=== PATIENT | female | born 1990 | race Caucasian/White ===

== ENCOUNTER 2024-06-13 13:14 | Outpatient (AMB) | payer OTHER, SELFPAY ==
--- NOTE | 2024-06-13 13:17 | MHC.PC.OV ---
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 Required: No Is last menstrual period known: Yes Last menstrual period: 05/23/24 Post menopausal: No Patient : No Allergies cimetidine [From TAGAMET] Allergy (Unknown, Verified 06/13/24 13:21) NAUSEA & VOMITING Medication List - Last Reconciled 06/13/24 by Marilyn Hawkins PA-C fluoxetine 40 mg PO DAILY Tobacco use date assessed: 06/13/24 Dental Screening Dental Screen Date: 06/13/24 Did you have a dental visit in the last 12 months?: Yes Did you have a dental problem in the last 6 months where you did not have access to dental care?: No Was dental information given to patient?: Patient has dentist HPI RETINAL 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 She is transferring from [place]. She reports a significant past medical history of anxiety, depression, paolo (states this was mostly with ), IFG, episodes of hypoglycemia and lightheadedness. She has been feeling lightheaded for about 5 years but states it could have been going on longer. Does seem to be triggered by sudden movements or if she gets up quickly. She does believe she is well hydrated. She uses an electrolyte packet daily. She feels lightheaded almost every day and can trigger it. No chest pain, shortness on breath or palpitations. She is not believe it is related to blood sugar issues. Endo: States during her she was a borderline diabetic and overnight would often have hypoglycemic events. This was without any medication and she did have to eat at night. She is currently using zepbound for weight loss through an online doctor and compound pharmacy. Does not feel that she has any adverse effects of this. Psych: Currently on fluoxetine 40 mg. No SI/HI. Did not tolerate sertraline. Insect Control Aide: Has a family hx of breast cancer in maternal grandmother, maternal aunt and mother around the late 40s-early 50s with the diagnoses. Patient is BRCA negative. She does follow with gynecology. Works full-time in the [employer]. Has a 1-year-old and 2-year-old at home. Not currently breast-feeding. They have discussed family planning and they are done having more children. [facility] Medical History (Updated 06/13/24 @ 13:59 by Marilyn Hawkins PA-C) Depression Anxiety Eczema Asthma Surgical History (Updated 06/13/24 @ 13:37 by Justina Oglesby) S/P foot surgery, left Family History (Updated 06/13/24 @ 13:36 by Justina Oglesby) Mother Alcohol abuse Breast cancer Brother Alcohol abuse Father Asthma High blood pressure Diabetes Paternal Grandfather Asthma High blood pressure High cholesterol Diabetes Thyroid disorder Paternal Grandmother Asthma Psychiatric disorder Maternal Grandfather High cholesterol Psychiatric disorder Maternal Grandmother Breast cancer Social History Housing: House Patient Tobacco Use Status: Never used Tobacco e-Cigarette/Vaping Use: Never Used Second Hand Smoke Exposure: No Patient : No service: No Current occupational status: employed 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 1. Little interest or pleasure in doing things: not at all 2. Feeling down, depressed, or hopeless: not at all 3. Trouble falling or staying asleep, or sleeping too much: not at all 4. Feeling tired or having little energy: several days 5. Poor appetite or overeating: not at all 6. Feeling bad about yourself - or that you are a failure or have let yourself or your family down: not at all 7. Trouble concentrating on things, such as reading the newspaper or watching television: not at all 8. Moving or speaking so slowly that other people could have noticed. Or the opposite - being so fidgety or restless that you have been moving around a lot more than usual: not at all 9. Thoughts that you would be better off or of hurting yourself in some way: not at all Total score: 1 Depression Screening Interpretation: Negative Depression Screening Done: Yes 09654 - PHQ-9 Billing: Yes Source: Developed by Drs. Wade Garrett, Teresa Watkins, Fady Giraldo and colleagues, with an educational sarina from [employer]. Thrive Questionnaire Date Thrive assessed: 06/13/24 I am a: Patient What is your living situation today?: I have a steady place to live Within the past 12 months, did the food you bought not last and you didn't have the money to get more?: Never true Within the past 12 months, did you worry whether your food would run out before you got money to buy more?: Never true Do you have trouble paying for medicines?: No Do you have trouble getting transportation to medical appointments?: No Do you have trouble paying your heating and electricity bill?: No Do you have trouble taking care of your child, family member or friend?: No Do you have trouble with day-to-day activities such as bathing, preparing meals, shopping, managing finances, etc.?: No Are you currently unemployed and looking for a job?: No Are you interested in more education?: No Please select the resources that you would like help with: None Currently or been in a relationship where the following occur: No concerns reported THRIVE Score: 0 AUDIT C Alcohol Use Questionnaire (AUDIT-C) 1. How often do you have a drink containing alcohol?: 2-4 times a month 2. How many drinks containing alcohol do you have on a typical day when you are drinking?: 1 or 2 3. How often do you have six or more drinks on one occasion?: Never Total Score: 2 Score Reviewed/Action Taken: Yes ELIZABETH-7 AMB Questionnaire ELIZABETH-7 Date ELIZABETH - 7 assessed: 06/13/24 Feeling nervous, anxious, or on edge: 0 = Not at all Not being able to stop or control worryin = Not at all Worrying too much about different things: 0 = Not at all Trouble relaxin = Not at all Being so restless that it is hard to sit still: 0 = Not at all Becoming easily annoyed or irritable: 0 = Not at all Feeling afraid as if something awful might happen: 0 = Not at all Total ELIZABETH-7 score (0-4 normal; 5-9 mild; 10-14 moderate; 15-21 severe): 0 Source: Developed by Teresa Arreaga Roland, Fady Giraldo and colleagues, with an educational sarina from [employer]. ELIZABETH-7 Assessment Billing ELIZABETH-7 Assessment Tool: ELIZABETH-7 Assessment 11859 ACT Questionnaire In the past 4 weeks, how much of the time did your asthma keep you from getting as much done at work, school or at home?: None of the time During the past 4 weeks, how often have you had shortness of breath?: Not at all During the past 4 weeks, how often did your asthma symptoms wake you up at night or earlier than usual in the morning?: Not at all During the past 4 weeks, how often have you had to use your rescue inhaler or nebulizer medication?: Not at all How would you rate your asthma control during the past 4 weeks?: Well controlled Score: 24 Physical exam (Primary Care) Vital Signs: Last Vital Signs Temp 97.9 F 06/13/24 13:25 Pulse 68 06/13/24 13:25 Resp 16 06/13/24 13:25 BP 115/84 06/13/24 13:25 Pulse Ox 96 06/13/24 13:25 Oxygen Delivery Method Room Air 06/13/24 13:25 BMI result Body Mass Index 27.4 Tobacco/Smoking Status: Tobacco use Status Tobacco use date assessed 06/13/24 06/13/24 13:37 Patient Tobacco Use Status Never used Tobacco 06/13/24 13:37 e-Cigarette/Vaping Use Never Used 06/13/24 13:37 PHQ-9: PHQ-9 Score PHQ-9: Total score 1 06/13/24 13:39 Depression Screening Interpretation: Negative Thrive Assessment: Date of Thrive Assessment Date Thrive assessed 06/13/24 06/13/24 13:19 Currently or been in a relationship where the following occur: No concerns reported Const Orientation/consciousness: patient oriented x3 HENMT Ears: hearing grossly normal bilaterally Neck Thyroid: Thyroid normal Lymphatic: no lymphadenopathy noted Resp Auscultation: clear to auscultation bilaterally Cardio Rate: regular rate Rhythm: regular rhythm Heart sounds: S1 normal heart sound present and S2 normal heart sound present GI Inspection: Yes normal to inspection Palpation (GI): Soft to palpation and Other GI palpation findings present (nontender, no cva tenderness) Auscultation: normoactive bowel sounds Rectal Exam - Female: deferred Skin General skin exam: no rashes or lesions noted Neuro General: patient oriented x3, gait normal and no focal motor deficits Office Procedures EKG Details: EKG today in office is normal sinus rhythm at a rate of 61 beats per minute with nonspecific STT wave abnormalities. No prior study to compare. EKG interpreted myself and Dr. Boles. 37030-[id number], Complete Coding Level of Care Code New Pt Level 4 (30302) Complex EM visit Add On G2211 Diagnoses Anxiety with depression F41.8 IFG (impaired fasting glucose) R73.01 Hypoglycemia E16.2 Hx gestational diabetes Z86.32 Lightheadedness R42 Family history of breast cancer Z80.3 CPT Codes EKG - CPT: 50142-[id number], Complete ([id number]) Additional Codes ELIZABETH-7 Assessment Billing - ELIZABETH-7 Assessment Tool: ELIZABETH-7 Assessment 89090 ([id number]) PHQ-9 - 48691 - PHQ-9 Billing: Yes ([id number]) Assessment & Plan Assessment & Plan (1) Anxiety with depression: Code(s): F41.8 - Other specified anxiety disorders Category: Medical Plan: Continue the fluoxetine. Refill provided today. (2) IFG (impaired fasting glucose): Code(s): R73.01 - Impaired fasting glucose Category: Medical Plan: Labs ordered. (3) Hypoglycemia: Code(s): E16.2 - Hypoglycemia, unspecified Category: Medical Plan: As above. We did discuss that she could get a glucometer to monitor her blood sugars. (4) Hx gestational diabetes: Code(s): Z86.32 - Personal history of gestational diabetes Category: Medical Plan: A1c ordered (5) Lightheadedness: Code(s): R42 - Dizziness and giddiness Category: Medical Plan: EKG today is normal sinus rhythm. Orthostatic WNL. Labs ordered. Encouraged hydration. Holter monitor ordered as well. We will follow up pending test results. (6) Family history of breast cancer: Code(s): Z80.3 - Family history of malignant neoplasm of breast Category: Medical Plan: Mammogram ordered. Orders: Orders Complete Blood Count Auto Diff Today E16.2 - Hypoglycemia, unspecified, F41.8 - Other specified anxiety disorders, R42 - Dizziness and giddiness, R73.01 - Impaired fasting glucose, Z86.32 - Personal history of gestational diabetes TSH reflex Free T4 Today E16.2 - Hypoglycemia, unspecified, F41.8 - Other specified anxiety disorders, R42 - Dizziness and giddiness, R73.01 - Impaired fasting glucose, Z86.32 - Personal history of gestational diabetes Magnesium Today E16.2 - Hypoglycemia, unspecified, F41.8 - Other specified anxiety disorders, R42 - Dizziness and giddiness, R73.01 - Impaired fasting glucose, Z86.32 - Personal history of gestational diabetes Vitamin B12 and Folate Today E16.2 - Hypoglycemia, unspecified, F41.8 - Other specified anxiety disorders, R42 - Dizziness and giddiness, R73.01 - Impaired fasting glucose, Z86.32 - Personal history of gestational diabetes Insulin Today E16.2 - Hypoglycemia, unspecified, F41.8 - Other specified anxiety disorders, R42 - Dizziness and giddiness, R73.01 - Impaired fasting glucose, Z86.32 - Personal history of gestational diabetes MM screening mammo BI Today Z12.31 - Encounter for screening mammogram for malignant neoplasm of breast, Z80.3 - Family history of malignant neoplasm of breast Comprehensive [place]. Panel Fast Today E16.2 - Hypoglycemia, unspecified, F41.8 - Other specified anxiety disorders, R42 - Dizziness and giddiness, R73.01 - Impaired fasting glucose, Z86.32 - Personal history of gestational diabetes Ferritin Today E16.2 - Hypoglycemia, unspecified, F41.8 - Other specified anxiety disorders, R42 - Dizziness and giddiness, R73.01 - Impaired fasting glucose, Z86.32 - Personal history of gestational diabetes Lipid Panel Today E16.2 - Hypoglycemia, unspecified, F41.8 - Other specified anxiety disorders, R42 - Dizziness and giddiness, R73.01 - Impaired fasting glucose, Z86.32 - Personal history of gestational diabetes Hemoglobin A1c Today E16.2 - Hypoglycemia, unspecified, F41.8 - Other specified anxiety disorders, R42 - Dizziness and giddiness, R73.01 - Impaired fasting glucose, Z86.32 - Personal history of gestational diabetes Microalbumin, Random (w Creat) Today E16.2 - Hypoglycemia, unspecified, F41.8 - Other specified anxiety disorders, R42 - Dizziness and giddiness, R73.01 - Impaired fasting glucose, Z86.32 - Personal history of gestational diabetes Vitamin B1 Today E16.2 - Hypoglycemia, unspecified, F41.8 - Other specified anxiety disorders, R42 - Dizziness and giddiness, R73.01 - Impaired fasting glucose, Z86.32 - Personal history of gestational diabetes Vitamin A Today E16.2 - Hypoglycemia, unspecified, F41.8 - Other specified anxiety disorders, R42 - Dizziness and giddiness, R73.01 - Impaired fasting glucose, Z86.32 - Personal history of gestational diabetes AMB EKG-In Office Today R42 - Dizziness and giddiness ECG holter monitor 24 hour Today R42 - Dizziness and giddiness Medications: New fluoxetine 40 mg PO DAILY 90 caps 3RF
[2024-06-13 13:25] VITALS: BP 115/84; PULSE 68; RESP 16; TEMP 36.6; O2SAT 96; BMI 27.4
== END 2024-06-13 16:19 | disposition home or self-care (01) ==
PROVIDERS: PCP Physician Assistant; Visit Provider Physician Assistant
DX: R73.01 Impaired fasting glucose (principal); F41.8 Other specified anxiety disorders; Z86.32 Personal history of gestational diabetes; R42 Dizziness and giddiness; Z80.3 Family history of malignant neoplasm of breast

== ENCOUNTER → 2024-06-13 13:14 | Outpatient (BNVA) | payer OTHER, SELFPAY | PROVIDERS: PCP Hospitalist; Visit Provider Physician Assistant | DX: Z00.00 Encounter for general adult medical examination without abnormal findings (principal); F41.8 Other specified anxiety disorders; R73.01 Impaired fasting glucose; E16.2 Hypoglycemia, unspecified; R42 Dizziness and giddiness; J45.909 Unspecified asthma, uncomplicated; Z86.32 Personal history of gestational diabetes; Z79.899 Other long term (current) drug therapy; Z80.3 Family history of malignant neoplasm of breast | CPT/HCPCS: 93005; 96127; 96160 ==

== ENCOUNTER 2024-07-26 12:00 | Outpatient (REF) | payer OTHER, SELFPAY ==
--- NOTE | ~2024-07-26 | MM_ITS ---
EXAMINATION: MM SCREENING DIGITAL BREAST TOMOSYNTHESIS, BILATERAL CLINICAL INFORMATION: Screening. Asymptomatic. Family history of breast cancer including maternal grandmother maternal aunt mother ages in their 40s. COMPARISON: Mammography: Baseline. TECHNIQUE: Digital breast mammography with tomosynthesis is performed in both the craniocaudal and mediolateral oblique views along with computer-aided detection (CAD). FINDINGS: The breasts are heterogeneously dense, which may obscure small masses (ACR BI-RADS breast composition Category c). There are no significant masses, abnormal calcifications, or other abnormalities. MM/MM tomosynthesis screening BI IMPRESSION: No mammographic evidence of malignancy. ASSESSMENT: BI-RADS BI-RADS 1 - Negative RECOMMENDATION: Routine annual mammography screening. Patient has a strong family history of breast cancer with multiple relatives in their 40s. Breast MRI with contrast could be considered for further screening evaluation. Breast MRI would need to be ordered by the patient's providing clinician. 1 year F/U This examination should not preclude the clinical evaluation of a suspicious palpable abnormality. This patient's information was entered into a reminder system with a target due date for their next mammogram. Electronically signed by: Lorna Mueller DO 08/03/2024 11:58 AM EST
--- NOTE | 2024-07-26 13:06 | HM_ITS ---
Conclusion: 1. Patient was monitored for total period of about 24 hours 2. Baseline was normal sinus rhythm with average heart of 73 beats per minute 3. No significant pauses or arrhythmias noted 4. No patient reported events MTDD
--- OUTSIDE RECORDS SUMMARY | 2024-07-26 13:08 | XMS_ITS | Clinical Summary ---
Author Organization [facility] Address [address] [place] [phone] Phone Care Team Providers Care Waterproof Material Folder Name Role Phone Unavailable Primary Care Provider Unavailabl e Immunizations Immunization Administration Dates Next Due DTP 08/13/1993, 0,02/02/1989,12/03,1988 HPV, Quadrivalent 12/06/2007,03/23/2007 Hep B, ped/adol 12/11/1998,03/28/1998,02/17/1998 Hib (PRP-T) 01/26/1990 Influenza, injectable, trivalent 03/23/2007 MMR 03/01/2000,10/28/1989 Meningococcal Conj (Menactra) MCV4P 01/08/2008 OPV 08/13/1993, 0,1988,09/06 Td (adult) (MBL), 2 Lf tetan us toxoid, PF, adsorbed 03/01/2000 Tdap 01/08/2008 Family History Relation Name Status Comments Father Alive Father: Strabis mus/amblyopia, Alive and well Mother Alive Mother: migrane s c menses Sister Alive [id number]: Asthma Social History Tobacco Use Types Packs/Day Years Used Date Smoking Tobacco: Never Assessed Comments Unknown Sex and Gender Information Value Date Recorded Sex Assigned at Not on file Legal Sex Female 4:32 PM EDT Gender Identity Not on file Sexual Orientation Not on file Last Filed Vital Signs Vital Sign Reading Time Taken Comments Blood Pressure - - Pulse - - Temperature 36.7 ??C (98 ??F) 12/01/2009 12:00 AM EDT Respiratory Rate - - Oxygen Saturation - - Inhaled Oxygen Concentration - - Weight 74.4 kg (164 lb) 12/01/2009 12:00 AM EDT Height - - Body Mass Index - - Plan of Treatment Health Maintenance Due Date Last Done Comments Varicella Vaccines (1 of 2 - 13+ 2-dose series) 2001 HPV Vaccines (3 - 3-dose series) 02/28/2008 12/06/2007, 03/23/2007 DTaP,Tdap,and Td Vaccines (7 - Td or Tdap) 01/07/2018 01/08/2008, 03/01/2000, 08/13/1993, Additional history exists Influenza Vaccines (#1) 2024 03/23/2007 COVID-19 Vaccine ( season) 2024 HIB Vaccines Completed 01/26/1990 IPV Vaccines Completed 08/13/1993, 01/05, 1988, Additional history exists Hepatitis B Vaccines Completed 12/11/1998, 03/28/1998, 02/17/1998 MMR Vaccines Completed 03/01/2000, 10/28/1989 Meningococcal Vaccine Aged Out 01/08/2008 No annabella scott eligible based on patient's age to complete this topic Hepatitis A Vaccines Aged Out No long er eligible based on patient's age to complete this topic Men B Vaccine Aged Out No longer elig ible based on patient's age to complete this topic Pneumococcal Vaccine Aged Out No long er eligible based on patient's age to complete this topic
--- OUTSIDE RECORDS SUMMARY | 2024-07-26 13:08 | XMS_ITS | Encounter Summary ---
Author Organization [facility] Address [address] [place] [address] Phone Care Team Providers Care Application Support Manager Name Role Phone Unavailable Primary Care Provider Unavailabl e Encounter Details Date Type Department Care Team (Late st Contact Info) Description 02/12/2010 Documentation EM Family Medicine [address] [place] [address] Family Medicine, Physician [place] [address] Social History Tobacco Use Types Packs/Day Years Used Date Smoking Tobacco: Never Assessed Comments Unknown Sex and Gender Information Value Date Recorded Sex Assigned at Not on file Legal Sex Female 4:32 PM EDT Gender Identity Not on file Sexual Orientation Not on file documented as of this encounter Plan of Treatment Not on file documented as of this encounter Visit Diagnoses Not on filedocumented in this encounter
--- OUTSIDE RECORDS SUMMARY | 2024-07-26 13:08 | XMS_ITS | Encounter Summary ---
Author Organization [facility] Address [address] [place] [address] Phone Care Team Providers Care Inspector Screen Printing Name Role Phone Unavailable Primary Care Provider Unavailabl e Encounter Details Date Type Department Care Team (Late st Contact Info) Description 01/20/2017 Conversion Encounter [facility] - [address] [phone] Social History Tobacco Use Types Packs/Day Years [...]
--- OUTSIDE RECORDS SUMMARY | 2024-07-26 13:08 | XMS_ITS | Encounter Summary ---
Author Organization [facility] Address [address] [place] [address] Phone Care Team Providers Care Rn Clinical Trials Name Role Phone Unavailable Primary Care Provider Unavailabl e Encounter Details Date Type Department Care Team (Late st Contact Info) Description 07/21/2010 Documentation EM Family Medicine [address] [place] [address] Family Medicine, Physician [facility] [place] [address] Social History Tobacco Use Types [...]
--- OUTSIDE RECORDS SUMMARY | 2024-07-26 13:08 | XMS_ITS | Encounter Summary ---
Author Organization [facility] Address [address] [place] [phone] Phone Care Team Providers Care Ethylene Oxide Panelboard Operator Name Role Phone Unavailable Primary Care Provider Unavailabl e Encounter Details Date Type Department Care Team (Late st Contact Info) Description 03/25/2011 Documentation EM Family Medicine [address] [place] [address] Family Medicine, Physician [facility] [place] [address] Social History Tobacco Use Types [...]
== END 2024-07-26 12:01 | disposition home or self-care (01) ==
LOC: HO.MAMMO 12:00
PROVIDERS: PCP Physician Assistant; Visit Provider Physician Assistant
DX: Z12.31 Encounter for screening mammogram for malignant neoplasm of breast (principal); R42 Dizziness and giddiness; Z80.3 Family history of malignant neoplasm of breast
CPT/HCPCS: 77063; 77067; 93225

== ENCOUNTER → 2024-07-26 12:15 | Outpatient (BNV) | payer OTHER, SELFPAY | PROVIDERS: PCP Physician Assistant; Visit Provider Internal Medicine | DX: Z12.31 Encounter for screening mammogram for malignant neoplasm of breast (principal) | CPT/HCPCS: 77063; 77067 ==

== ENCOUNTER → 2024-07-26 13:06 | Outpatient (BNV) | payer OTHER, SELFPAY | PROVIDERS: PCP Physician Assistant; Visit Provider Internal Medicine Cardiovascular Disease | DX: R00.1 Bradycardia, unspecified (principal) | CPT/HCPCS: 93227 ==

== ENCOUNTER 2024-10-25 12:54 | Outpatient (AMB) | payer OTHER, SELFPAY ==
--- OUTSIDE RECORDS SUMMARY | 2024-10-25 12:57 | XMS_ITS | Encounter Summary ---
Author Organization [facility] Address [address] [place] [phone] Phone Care Team Providers Care Director Business Systems Name Role Phone Unavailable Primary Care Provider Unavailabl e Encounter Details Date Type Department Care Team (Late st Contact Info) Description 03/25/2011 Documentation EM Family Medicine [address] [place] [address] Family Medicine, Physician [facility] [place] [address] Social History Tobacco Use Types [...]
--- OUTSIDE RECORDS SUMMARY | 2024-10-25 12:57 | XMS_ITS | Encounter Summary ---
Author Organization [facility] Address [address] [place] [address] Phone Care Team Providers Care Corporate Travel Coordinator Name Role Phone Unavailable Primary Care Provider Unavailabl e Encounter Details Date Type Department Care Team (Late st Contact Info) Description 01/20/2017 Conversion Encounter [facility] - [address] [phone] Social History Tobacco Use Types Packs/Day Years [...]
--- OUTSIDE RECORDS SUMMARY | 2024-10-25 12:58 | XMS_ITS | Encounter Summary ---
Author Organization [facility] Address [address] [place] [address] Phone Care Team Providers Care Magento Developer Name Role Phone Unavailable Primary Care Provider Unavailabl e Encounter Details Date Type Department Care Team (Late st Contact Info) Description 07/21/2010 Documentation EM Family Medicine [address] [place] [address] Family Medicine, Physician [facility] [place] [address] Social History Tobacco Use Types [...]
--- OUTSIDE RECORDS SUMMARY | 2024-10-25 12:58 | XMS_ITS | Clinical Summary ---
Author Organization [facility] Address [address] [place] [address] Phone Care Team Providers Care Second Class Welder Name Role Phone Unavailable Primary Care Provider [...] Mother: migrane s c menses Sister Alive [id number]: Asthma Social History Tobacco Use Types Packs/Day [...]
--- OUTSIDE RECORDS SUMMARY | 2024-10-25 12:58 | XMS_ITS | Encounter Summary ---
Author Organization [facility] Address [address] [place] [address] Phone Care Team Providers Care Speeder Operator Name Role Phone Unavailable Primary Care Provider Unavailabl e Encounter Details Date Type Department Care Team (Late st Contact Info) Description 02/12/2010 Documentation EM Family Medicine [address] [place] [address] Family Medicine, [place] [address] Social History Tobacco Use Types [...]
[2024-10-25 13:08] VITALS: BMI 27.3
--- NOTE | 2024-10-25 13:08 | MHC.OFFVIS ---
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 Started about a week ago getting worse pain and numbness below the knee. 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 Legal Coordinator Required: No Accompanied by: Self / Same As Patient Allergies cimetidine [From TAGAMET] Allergy (Unknown, Verified 10/25/24 13:10) NAUSEA & VOMITING HPI HPI NETWORK AND THREAT SUPPORT SPECIALIST/Self referral pain/weakness in legs: Details: Kendal, a very pleasant 34yo female patient, is presenting today as a self-referral for concerns of right lower extremity numbness, swelling, and pain. She states that the numbness, pain, and swelling is worse after sitting and gets better with activity. She states the numbness starts at her knee and goes to her ankle. Complaints include pain behind the right knee, swelling of lower extremities, cramping, fatigue, and heaviness of the lower extremities. It has been affecting their daily activities including sitting, walking, and standing. It is noted more so in the right leg. There is family hx of her father and paternal uncle having vein procedures of their lower extremities. She denies any hx of blood clots. She is a nonsmoker and is not a diabetic. 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 Patient denies any previous venous surgery or injections. Patient denies any history of DVT/ PE. Patient denies any history of phlebitis. Trial of compression includes - nothing They now present for vascular evaluation regarding their varicose veins. [facility] Medical History Depression Anxiety Eczema Asthma Surgical History S/P foot surgery, left Family History Mother Alcohol abuse Breast cancer Brother Alcohol abuse Father Asthma High blood pressure Diabetes Paternal Grandfather Asthma High blood pressure High cholesterol Diabetes Thyroid disorder Paternal Grandmother Asthma Psychiatric disorder Maternal Grandfather High cholesterol Psychiatric disorder Maternal Grandmother Breast cancer Social History Housing: House Patient Tobacco Use Status: Never used Tobacco e-Cigarette/Vaping Use: Never Used Second Hand Smoke Exposure: No service: No Current occupational status: employed 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 [employer] Current occupational exposures/hazards: No Cognitive needs: No Hearing needs: No Vision needs: Yes Review of Systems Const Reports as per HPI and Denies weakness ENT Reports Normal hearing present and Denies dizziness Card Reports as per HPI, Denies chest pain, Denies chest pain at rest, Denies chest pain with activity, Denies dyspnea and Denies dyspnea on exertion Resp Reports as per HPI, Denies cough, Denies dyspnea and Denies dyspnea on exertion GI Reports as per HPI, Denies abdominal pain, Denies nausea and Denies vomiting Musc Denies numbness Skin/Breast Reports as per HPI, Denies erythema and Denies wounds Neuro Reports Normal hearing present, Denies dizziness, Denies numbness, Denies Sensory deficit (Neuro) and Denies weakness Psych Reports no additional complaints Endo Reports no additional complaints Physical Exam Vital Signs: BMI result Body Mass Index 27.3 Const General: healthy appearing and no acute distress Orientation/consciousness: patient oriented x3 HEENT Head: Yes normal to inspection Ears: hearing grossly normal bilaterally Mouth: Normal oral and palatal mucosa present Resp Effort & Inspection: normal respiratory effort and able to speak in complete sentences Auscultation: clear to auscultation bilaterally Cardio Jugular venous distension: no JVD Rate: regular rate Rhythm: regular rhythm Heart sounds: S1 normal heart sound present and S2 normal heart sound present Bruits: no abdominal aortic bruits, no carotid bruits, no femoral bruits and no renal bruits Peripheral pulses: Peripheral pulses 2+ throughout GI Inspection: Yes normal to inspection Palpation (GI): No Abdominal aortic bruit present Skin General skin exam: no rashes or lesions noted Wounds: no wounds Hair: normal Neuro General: patient oriented x3 Cranial nerves: Yes Normal hearing present Cognition (Neuro): normal cognition Gait exam (Neuro): Normal gait present Motor exam (neuro): 5/5 motor strength present throughout Sensory Exam: No Sensory deficit (Neuro) Extrem Other: Right lower extremity: trace peripheral edema noted. Small telangiectasis noted behind the knee. No tortuosities noted. Palpable DP pulse. CEAP: C - 3 E - primary A - superficial P - reflux General: Yes normal to inspection, Yes full ROM, Yes capillary refill normal and Yes normal gait Assessment & Plan Assessment & Plan (1) Varicose veins of both lower extremities with inflammation: Code(s): I83.11 - Varicose veins of right lower extremity with inflammation; I83.12 - Varicose veins of left lower extremity with inflammation Category: Medical Plan: Kendal is presenting today as a self-referral for concerns of right lower extremity swelling, numbness, and pain, particularly from her knee down to her ankle. She states she first noticed it appx 1m ago but it has worsened over the last week. In short, the patient has evidence of venous insufficiency. I have discussed the pathophysiology with the patient. In addition I have provided informational material regarding venous disease to the patient. We have discussed conservative measures including compression, elevation, and exercise. She has compression socks left over from her pregnancies, she will start wearing them. I have taken the liberty of ordering venous insufficiency testing with the patient. They will follow up with me after testing. The patient had an opportunity to ask questions regarding the treatment plan. All questions were answered. Imaging studies, laboratory studies and physical exam results were discussed and reviewed in detail. No major barriers to understanding were identified. The patient expressed understanding and agreement with the above treatment plan. The patient is aware they should contact our office by phone for worsening of the current condition or the appearance of new symptoms. Thank you for allowing me to participate in the vascular care of this patient. If you have any questions or concerns regarding the treatment for the above condition please do not hesitate to contact me. The office telephone contact is [phone]. This note is constructed using voice recognition software. While every effort has been made to ensure accuracy, android software engineer errors may have been included. Thank you for allowing me to participate in the care of your patient. Yours sincerely, ANGEL Walsh Orders: Orders US venous duplex LE BI 1 Week I83.11 - Varicose veins of right lower extremity with inflammation, I83.12 - Varicose veins of left lower extremity with inflammation Coding Level of Care Code New Pt Level 4 (32608) Diagnoses Varicose veins of both lower extremities with inflammation I83.11; I83.12
== END 2024-10-25 13:27 | disposition home or self-care (01) ==
LOC: HO.HVS 12:55
PROVIDERS: PCP Physician Assistant; Visit Provider Physician Assistant Surgical
DX: I83.11 Varicose veins of right lower extremity with inflammation (principal); I83.12 Varicose veins of left lower extremity with inflammation
CPT/HCPCS: 99204

== ENCOUNTER 2024-10-31 09:36 | Outpatient (REF) | payer OTHER, SELFPAY ==
--- OUTSIDE RECORDS SUMMARY | 2024-10-31 10:18 | XMS_ITS | Encounter Summary ---
Author Organization [facility] Address [address] [place] [id number] Phone Care Team Providers Care Patternmaker Metal Name Role Phone Unavailable Primary Care Provider Unavailabl e Encounter Details Date Type Department Care Team (Late st Contact Info) Description 03/25/2011 Documentation [facility] Family Medicine [address] [place] [address] Family Medicine, Physician [facility] [place] [address] Social History Tobacco Use Types [...]
[2024-10-31 11:24] LABS: MANUAL DIFF FLAG NO
[2024-10-31 11:28] LABS: Basophils Absolute Auto 0.1 X10*3/uL (0.0-0.2); Basophils Percent Auto 0.8 % (0-2); Eosinophils Absolute Auto 0.2 X10*3/uL (0.0-0.4); Eosinophils Percent Auto 2.8 % (0-4); Hematocrit 38.6 % (37.0-47.0); Hemoglobin 12.6 g/dl (12.0-16.0); Imm Gran Abs Auto 0.01 X10*3/uL (0.00-0.03); Imm Gran Pct Auto 0.2 % (0.0-0.4); Lymphocytes Absolute Auto 1.5 X10*3/uL (1.2-4.9); Lymphocytes Percent Auto 24.1 % (20-40); Mean Corpuscular HGB Conc 32.6 g/dl (31.0-35.0); Mean Corpuscular Hemoglobin 28.6 pg (27.0-33.0); Mean Corpuscular Volume 87.7 fL (80.0-98.0); Monocytes Absolute Auto 0.4 X10*3/uL (0.1-1.2); Monocytes Percent Auto 6.1 % (2-11); Neutrophils Absolute Auto 4.1 x10*3/uL (2.0-8.3); Platelet Count 247 X10*3/uL (160-400); Red Cell Distribution Width 13.1 % (11.0-16.0); White Blood Count 6.2 X10*3/uL (4.8-10.8)
[2024-10-31 11:39] LABS: Estimated Average Glucose 94 mg/dL; Hemoglobin A1C 99.3081 umol/L; Hemoglobin A1c % 4.9 % (<6.0); Total Hemoglobin (HGBA1C) 3323.2565 umol/L
[2024-10-31 12:01] LABS: Alanine Aminotransferase 19 U/L (0-31); Albumin Level 4.3 g/dL (3.5-5.0); Alkaline Phosphatase 70 U/L (39-117); Anion Gap 9 (12-20); Aspartate Amino Transferase 17 U/L (5-31); Bilirubin Total 0.3 mg/dL (0.0-1.0); Blood Urea Nitrogen 18 mg/dL (9-16); Calcium 8.8 mg/dL (8.4-10.2); Carbon Dioxide 27 mmol/L (22-29); Chloride 108 mmol/L (96-108); Cholesterol 181 mg/dL (<200); Estimated Glomerular Filt Rate > 60; Glucose Fasting 83 mg/dL (60-99); HDL Cholesterol 65 mg/dL (>40); LDL Cholesterol Calculated 106 mg/dL (<100); Magnesium 1.8 mg/dL (1.6-2.6); Potassium 4.5 mmol/L (3.3-5.1); Sodium 139 mmol/L (135-145); Total Protein 7.1 g/dL (6.5-8.0); Triglycerides 50 mg/dL (<150)
[2024-10-31 12:11] LABS: Ferritin 31 ng/mL (10-122); TSH reflex Free T4 1.37 uIU/mL (0.32-4.0)
[2024-10-31 12:32] LABS: Folate 9.2 ng/mL (> or = 4.0); Vitamin B12 677 pg/mL (200-900)
[2024-10-31 18:05] LABS: Insulin 6 uU/mL (2-29)
[2024-11-04 13:58] LABS: Vitamin B1 19 nmol/L (8-30)
[2024-11-04 20:27] LABS: Vitamin A 41 mcg/dL (38-98)
== END 2024-10-31 09:37 | disposition home or self-care (01) ==
LOC: HO.WFDLDS 09:36
PROVIDERS: Visit Provider Physician Assistant
DX: F41.8 Other specified anxiety disorders (principal); E16.2 Hypoglycemia, unspecified; Z86.32 Personal history of gestational diabetes; R42 Dizziness and giddiness; Z13.6 Encounter for screening for cardiovascular disorders
CPT/HCPCS: 36415; 80053; 80061; 82607; 82728; 82746; 83036; 83525; 83735; 84425; 84443; 84590; 85025

== ENCOUNTER 2024-11-13 08:30 | Outpatient (REF) | payer OTHER, SELFPAY ==
--- NOTE | ~2024-11-13 | US_ITS ---
EXAMINATION: US LOWER EXTREMITY VENOUS (REFLUX EXAM), BILATERAL CLINICAL INFORMATION: Varicose veins of the lower extremity with inflammation COMPARISON: None. TECHNIQUE: Color flow triplex imaging and compression Doppler was performed to evaluate both the deep and the superficial systems bilaterally. To evaluate the superficial system, the examination was performed in the upright position. Color-flow Doppler ultrasound and compression ultrasound were utilized. In addition, maneuvers were utilized to demonstrate reflux. FINDINGS: 1. DEEP VENOUS ULTRASOUND OF THE RIGHT LOWER EXTREMITY: Common Femoral Vein: Compressible, normal respiratory variation and augmented flow. Femoral Vein: Compressible, normal color flow and augmentation. Popliteal Vein: Compressible. Reflux measured 784 ms Deep Reflux: There is no evidence of reflux in the deep system in either the common femoral vein, superficial femoral or the popliteal vein. There is no evidence of a [facility]'s cyst. 2. SUPERFICIAL ULTRASOUND WITH DOPPLER OF RIGHT LOWER EXTREMITY: GREAT SAPHENOUS VEIN: Saphenofemoral Junction: 0.7 cm; Reflux: 0 ms Proximal Thigh: 0.4 cm; Reflux: 0 ms Mid Thigh: 0.4 cm; Reflux: > 2384 ms Distal Thigh: 0.5 cm; Reflux: 820 ms At Knee: 0.6 cm; Reflux: 0 ms Proximal Calf: 0.3 cm; Reflux: 0 ms Mid Calf: 0.2 cm; Reflux: 0 ms Distal Calf: 0.3 cm; Reflux: 0 ms Lateral accessory GREAT SAPHENOUS VEIN: Mid Thigh: 0.1 cm; Reflux: 0 ms DUPLICATED MEDIAL GREAT SAPHENOUS VEIN: Diameter: None imaged Reflux: NA DUPLICATED LATERAL GREAT SAPHENOUS VEIN: Diameter: None imaged Reflux: NA SMALL SAPHENOUS VEIN: Popliteal vein drainage Saphenopopliteal Junction: 0.3 cm; Reflux: 0 ms Mid calf: 0.3 cm; Reflux: 0 ms Distal: 0.3 cm; Reflux: 0 ms VEIN OF GIACOMINI: Size: 0.3 cm Reflux: 0 ms PERFORATORS: Location: Greater saphenous vein, mid thigh Size: 0.2 cm Reflux: 0 ms PERFORATORS: Location: Greater saphenous vein, proximal calf Size: 0.2 cm Reflux: 0 ms Location: Greater saphenous vein, distal calf Size: 0.1 cm Reflux: 0 ms VARICOSITIES >3mm: Location: Greater saphenous vein, proximal calf Size: 0.3 cm Reflux: 0 ms 3. DEEP VENOUS ULTRASOUND OF THE LEFT LOWER EXTREMITY: Common Femoral Vein: Compressible, normal respiratory variation and augmented flow. Femoral Vein: Compressible, normal color flow and augmentation. Popliteal Vein: Compressible, normal augmentation. Deep Reflux: There is no evidence of reflux in the deep system in either the common femoral vein, superficial femoral or the popliteal vein. 4. SUPERFICIAL ULTRASOUND WITH DOPPLER OF LEFT LOWER EXTREMITY: GREAT SAPHENOUS VEIN: Saphenofemoral Junction: 0.7 cm; Reflux: 0 ms Proximal Thigh: 0.5 cm; Reflux: 0 ms Mid Thigh: 0.5 cm; Reflux: 0 ms Distal Thigh: 0.6 cm; Reflux: 0 ms At Knee: 0.4 cm; Reflux: 0 ms Proximal Calf: 0.2 cm; Reflux: 0 ms Mid Calf: 0.3 cm; Reflux: 0 ms Distal Calf: 0.3 cm; Reflux: 0 ms Lateral accessory GREAT SAPHENOUS VEIN: Saphenofemoral Junction: 0.3 cm; Reflux: 0 ms Mid Thigh: 0.3 cm; Reflux: 0 ms Medial accessory GREAT SAPHENOUS VEIN: None imaged DUPLICATED MEDIAL GREAT SAPHENOUS VEIN: Diameter: None imaged cm Reflux: NA ms DUPLICATED LATERAL GREAT SAPHENOUS VEIN: Diameter: None imaged. cm Reflux: NA ms SMALL SAPHENOUS VEIN: Popliteal vein drainage Saphenopopliteal Junction: 0.4 cm; Reflux: 0 ms Proximal: 0.2 cm; Reflux: 0 ms Distal: 0.2 cm; Reflux: 0 ms VEIN OF GIACOMINI: Size: 0.4 Reflux: 0 PERFORATORS: Location: Greater saphenous vein, knee Size: 0.1 cm Reflux: 0 ms Location: Greater saphenous vein, mid calf Size: 0.1 cm Reflux: 0 ms VARICOSITIES >3mm: Location: Greater saphenous vein, midcalf Size: 0.4 cm Reflux: 0 ms Location: Greater saphenous vein, knee Size: 0.5 cm Reflux: 0 ms US/US venous duplex LE BI IMPRESSION: Right: There is evidence of venous incompetence with perforators and varicose veins. Left: No venous reflux is demonstrated. Varicosities and perforators as described above. Electronically signed by: Gary Lopez MD 11/13/2024 11:36 AM EDT
--- OUTSIDE RECORDS SUMMARY | 2024-11-13 08:45 | XMS_ITS | Patient Health Record ---
Author Organization [facility] Address [address] [facility] [place] [address] Care Team Providers Care Plasterer Apprentice Name Role Phone Caryn Winston Primary Care Provider Naa Tellez Unavailable [phone] Allergies Allergen (clinical drug ingredient) Drug/Non Drug Allergy documented on EMR Reaction Allergy Type Onset Date Status cimetidine Tagamet HB Unknown Drug Allergy Activ e Reason For Referral No Information Medications Medication SIG (Take, Route, Fr equency, Duration) Notes Start Date End Date Status FLUoxetine HCl 20 MG Orally Once a day Active Bone Stimulator as directed 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 . . 2-3x/week for 3-4 weeks 07/2018 Active Claritin 10 MG 1 capsule Orally Active Sprintec 28 Active ProAir HFA Active Social History Tobacco Use: Social History Observation Description Date Details (start date - stop date) Never Smoker NA - NA Tobacco Use/Smoking Question Answer Notes Are you a: nonsmoker Additional Findings: Tobacco Non-User Aggressive non-smoker Alcohol Screen Question Answer Notes Did you have a drink contain ing alcohol in the past year? Yes How often did you have a dri nk containing alcohol in the past year? 2 to 4 times a month (2 points) How many drinks did you have on a typical day when you were drinking in the past year? 1 or 2 drinks (0 point) How often did you have 6 or more drinks on one occasion in the past year? Never (0 point) Points 2 Interpretation Negative Tobacco use other than smoking: Question Answer Notes Are you an other tobacco user? No Plan Of Treatment Pending Test Test Name Order Date MRI : Foot, left 12/20/2018 X ray : Foot, left 3V 01/31/2019 X ray : Foot, left 3V 03/08/2019 X ray : Foot, left 3V 11/27/2018 X ray : Foot, left 3V 12/20/2018 Insurance Providers Payer Name Payer Address Payer Phone Subscriber Number Group Number Insured Name Patient Relationship to Insured Coverage Start Date Coverage End Date [facility] [address] [place] [address] [id number] [address], Kendal Self - patient is the insured Medical (General) History Medical History History ICD Code Anxiety Back,Hip,and Knee pain Depression Chicken pox Surgical History Surgery Date(Month/Year) ovarian cyst 09/2016 wisdom teeth extraction 2006
== END 2024-11-13 08:31 | disposition home or self-care (01) ==
LOC: HO.US 08:30
PROVIDERS: PCP Physician Assistant; Visit Provider Physician Assistant Surgical
DX: I83.11 Varicose veins of right lower extremity with inflammation (principal); I83.12 Varicose veins of left lower extremity with inflammation
CPT/HCPCS: 93970

== ENCOUNTER → 2024-11-13 08:33 | Outpatient (BNV) | payer OTHER, SELFPAY | PROVIDERS: PCP Physician Assistant; Visit Provider Radiology Diagnostic Radiology | DX: I83.11 Varicose veins of right lower extremity with inflammation (principal); I83.12 Varicose veins of left lower extremity with inflammation | CPT/HCPCS: 93970 ==

== ENCOUNTER 2024-11-27 14:49 | Outpatient (AMB) | payer OTHER, SELFPAY ==
--- NOTE | 2024-11-27 14:51 | MHC.OFFVIS ---
Vital Signs 11/27/24 14:52 Height 5 ft 4 in Weight 159 lb BMI 27.3 Intake Visit Reasons: Follow Up 11/13 US Intake Note: follow up US 11/13/24, pt states pain and numbness that starts behind the knee. 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 Accompanied by: Self / Same As Patient Allergies cimetidine (From Monitor110) Allergy (Unknown, Verified 11/27/24 14:55) NAUSEA & VOMITING HPI HPI Follow Up 11/13 US: Details: The patient is a 34-year-old female presenting with venous insufficiency and associated symptoms. She reports numbness and pain in her right leg, particularly from the knee down, which occurs even after sitting for a short period. The numbness is accompanied by a sensation of circulation being cut off, leading to limping upon standing. The patient has a history of chronic back pain dating back to high school, approximately 20 years ago. She notes that the back pain worsened after her second , following a misdiagnosed foot fracture that led to prolonged immobilization and subsequent hip imbalance. Physical therapy was attempted post-immobilization, but the pain has persisted. The patient denies smoking and diabetes, and she reports being relatively active despite her symptoms. She experiences swelling in her right leg, which does not require significant provocation. Of note she has used compression with minimal relief PFSH Medical History Depression Anxiety Eczema Asthma Surgical History S/P foot surgery, left Family History Mother Alcohol abuse Breast cancer Brother Alcohol abuse Father Asthma High blood pressure Diabetes Paternal Grandfather Asthma High blood pressure High cholesterol Diabetes Thyroid disorder Paternal Grandmother Asthma Psychiatric disorder Maternal Grandfather High cholesterol Psychiatric disorder Maternal Grandmother Breast cancer Social History Housing: House Patient Tobacco Use Status: Never used Tobacco e-Cigarette/Vaping Use: Never Used Second Hand Smoke Exposure: No service: No Current occupational status: employed 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 [employer] Current occupational exposures/hazards: No Cognitive needs: No Hearing needs: No Vision needs: Yes Review of Systems Const Reports as per HPI ENT Reports no additional complaints Card Denies chest pain, Denies chest pain at rest and Denies chest pain with activity Resp Denies chest congestion and Denies cough GI Reports no additional complaints Musc Details: pain over varicosities, aching of lower extremities, swelling, cramping, heaviness and tiredness, itching Denies abnormal gait Skin/Breast Reports pruritus and Denies wounds Neuro Reports no additional complaints and Denies abnormal gait Psych Denies no additional complaints Physical Exam Vital Signs: BMI result Body Mass Index 27.3 Const General: cooperative, healthy appearing and comfortable Orientation/consciousness: oriented to person, oriented to place and oriented to time Neck Carotids: no bruits Chest Chest palpation & inspection: normal inspection of the chest and normal palpation of entire chest wall Resp Effort & Inspection: normal respiratory effort and able to speak in complete sentences Cardio Rate: regular rate Heart sounds: S1 normal heart sound present and S2 normal heart sound present Peripheral pulses: Peripheral pulses 2+ throughout GI Inspection: Yes normal to inspection Skin Other: +2 edema, large rope-like varicosities greater than 4 mm CEAP Classification C4 - skin color changes Ep - Etiology Primary As - superficial veins P - reflux General skin exam: dry skin Neuro General: oriented to person, oriented to place and oriented to time Extrem Right lower extremity: full ROM, normal capillary refill and edema Left lower extremity: full ROM, normal capillary refill and edema Psych Mental Status: mental status grossly normal Results Reviewed Results Reviewed: Brief summary of venous insufficiency testing is as follows: right great saphenous vein: Positive right small saphenous vein: negative right accessory vein: none present left great saphenous vein: negative left small saphenous vein: negative left accessory vein: none present Please note there is no evidence of any venous aneurysms or significant tortuosity Assessment & Plan Assessment & Plan (1) Varicose veins of right lower extremity with inflammation: Code(s): I83.11 - Varicose veins of right lower extremity with inflammation Category: Medical Plan: This patient has varicose veins with inflammation. They continue to be a source of discomfort for the patient. The patient has tried conservative treatment with compression, leg elevation and exercise program for over 3 months time. They have been compliant with all treatment. This has provided minimal relief for the patient. I do not anticipate this course of treatment will alter the underlying etiology. The patient has been scheduled for lower extremity venous treatment inclusive of --- right great saphenous vein Cyanoacralate ablation. Risks, benefits, and complications of this procedure has been discussed in detail with the patient including but not limited to bleeding, infection, and the development of a DVT. The patient has demonstrated a clear understanding and has consented. We will schedule the patient as soon as possible. Thank you for allowing us to participate in this patient's care. If there are any questions or concerns please do not hesitate to contact us. Coding Level of Care Code Est Pt Level 4 (59847) Diagnoses Varicose veins of right lower extremity with inflammation I83.11
[2024-11-27 14:52] VITALS: BMI 27.3
--- OUTSIDE RECORDS SUMMARY | 2024-11-27 18:02 | XMS_ITS | Patient Health Record ---
Author Organization [facility] Address [address] [facility] [address] Care Team Providers Care Fire Crew Worker Name Role Phone Caryn Winston Primary Care Provider Naa Tellez Unavailable [phone] Allergies Allergen (clinical drug ingredient) Drug/Non Drug [...] Insured Coverage Start Date Coverage End Date [facility] [address] [place] [address] [id number] [address], Kendal Self - patient is the insured Medical (General) History Medical History History ICD Code Anxiety Back,Hip,and Knee pain Depression Chicken pox Surgical History Surgery Date(Month/Year) ovarian cyst 09/2016 wisdom teeth extraction 2006
== END 2024-11-27 15:15 | disposition home or self-care (01) ==
LOC: HO.HVS 14:50
PROVIDERS: PCP Physician Assistant; Visit Provider Surgery Vascular Surgery
DX: I83.11 Varicose veins of right lower extremity with inflammation (principal)
CPT/HCPCS: 99214

== ENCOUNTER 2024-12-21 09:18 | Outpatient (AMB) | payer OTHER, SELFPAY ==
--- OUTSIDE RECORDS SUMMARY | 2024-12-21 09:24 | XMS_ITS | Encounter Summary ---
Author Organization [facility] Address [address] [place] [phone] Phone Care Team Providers Care Air Quality Consultant Name Role Phone Unavailable Primary Care Provider Unavailabl e Encounter Details Date Type Department Care Team (Late st Contact Info) Description 03/25/2011 Documentation [facility] [address] [place] [address] Family Medicine, Physician [facility] [place] [address] Social History Tobacco Use Types [...]
--- OUTSIDE RECORDS SUMMARY | 2024-12-21 09:24 | XMS_ITS | Patient Health Record ---
Author Organization [facility] Address [address] [facility] [place] [address] Care Team Providers Care Botanical Technical Officer Name Role Phone Caryn Winston Primary Care Provider Naa Tellez Unavailable [phone] Allergies Allergen (clinical drug ingredient) Drug/Non Drug [...] Act louann Physical Therapy . . . 2-3x/week; Durat ion: 3-4 weeks 01/05/2019 Active Claritin 10 MG 1 capsule Orally [...] Insured Coverage Start Date Coverage End Date [facility] [address] [place] [address] [id number] [address], Kendal Self - patient is the insured Medical (General) History Medical History History ICD Code Anxiety Back,Hip,and Knee pain Depression Chicken pox Surgical History Surgery Date(Month/Year) ovarian cyst 09/2016 wisdom teeth extraction 2006
[2024-12-21 10:04] VITALS: BMI 27.3
--- NOTE | 2024-12-21 10:04 | MHC.OFFVIS ---
Vital Signs 12/21/24 10:04 Height 5 ft 4 in Weight 159 lb BMI 27.3 Intake Visit Reasons: Right GSV Venaseal [place] Reverse Winder Required: No Accompanied by: Self / Same As Patient Allergies cimetidine (From Girl Meets DressT) Allergy (Unknown, Verified 12/21/24 10:04) NAUSEA & VOMITING PFSH Medical History Depression Anxiety Eczema Asthma Surgical History S/P foot surgery, left Family History Mother Alcohol abuse Breast cancer Brother Alcohol abuse Father Asthma High blood pressure Diabetes Paternal Grandfather Asthma High blood pressure High cholesterol Diabetes Thyroid disorder Paternal Grandmother Asthma Psychiatric disorder Maternal Grandfather High cholesterol Psychiatric disorder Maternal Grandmother Breast cancer Social History Housing: House Patient Tobacco Use Status: Never used Tobacco e-Cigarette/Vaping Use: Never Used Second Hand Smoke Exposure: No service: No Current occupational status: employed 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 [employer] Current occupational exposures/hazards: No Cognitive needs: No Hearing needs: No Vision needs: Yes Physical Exam Vital Signs: BMI result Body Mass Index 27.3 Office Procedures Vascular Office Procedure Details Details: Diagnosis: Right Leg varicose veins with inflammation Procedure: Endovenous Ablation of the right Great Saphenous Vein with VenaSeal Closure System Anesthesia: Local infiltration 5 cc, Bin Tripper Operator: None Estimated Blood Loss: min Specimen: none Duplex ultrasound was used to map out the insufficient saphenous vein, and access was determined and marked on the overlying skin. The depth and diameter of the vein(s) to be treated was documented. The patient was placed supine on the procedure table and the leg was prepped and draped using sterile technique. Ultasound guidance was again used to localize the access site. 1% lidocaine was injected as a local anesthetic in the subcutaneous tissues at the target location in the GSV in the lower leg. Using ultrasound guidance, access was gained at this location with the 19 gauge thin walled access needle and followed by introduction of a short guidewire, location confirmed with ultrasound. A small, 3 mm incision was made at the access site to allow for introduction and placement of the 7 Fr x7cm introducer/dilator. The dilator and guidewire were removed. The 0.035 guidewire from the VenaSeal kit was then introduced and positioned at the saphenofemoral junction using ultrasound guidance. The 80 cm 7 Fr introducer sheath/dilator was positioned 5cm from the saphenofemoral junction. The guidewire and dilator were removed, and the remaining sheath was flushed with sterile saline, with the syringe remaining in place prior to the next steps. The cyanoacrylate adhesive was precisely primed into the 5 F delivery catheter and this catheter/syringe combination was attached within the dispenser gun. This assembly was introduced through the 7F sheath and positioned 5 cm caudal of the saphenofemoral junction under ultrasound guidance. The steps from the IFU were followed for dispensing amounts, locations and compression times, 2 aliquots proximally with 3 minutes of compression, and 1 aliquot every 3 cm distally with 30 sec of compression along the course of the vessel. Following the last injection and compression sequence, the catheter and introducer sheath were pulled out from the access site. Hemostasis was achieved with manual compression and an adhesive bandage was applied to the incision. Ultrasound confirmed complete coaptation and closure of the treated segments of the GSV, and the absence of any DVT at the saphenofemoral junction. Treatment time was approximately 4.5 minutes and the vein length treated was 32 cm. The drapes were removed and the patient cleaned and prepared for discharge. Post op ultrasound check is scheduled for 48-72 hours and the patient was given written post-op instructions. 37355 - Endoven Ther Chem Adhes 1st All charges added?: Procedure code (CPT) selection complete Assessment & Plan Assessment & Plan (1) Varicose veins of right lower extremity with inflammation: Comment: 12/21/2024 - right great saphenous vein Cyanoacralate ablation Code(s): I83.11 - Varicose veins of right lower extremity with inflammation Category: Medical Plan: See op note Coding Level of Care Code Procedure Only Diagnoses Varicose veins of right lower extremity with inflammation I83.11 CPT Codes Details - Vascular 3: 20499 - Endoven Ther Chem Adhes 1st ([id number])
== END 2024-12-21 10:38 | disposition home or self-care (01) ==
LOC: HO.HVS 09:19
PROVIDERS: PCP Physician Assistant; Visit Provider Surgery Vascular Surgery
DX: I83.11 Varicose veins of right lower extremity with inflammation (principal)
CPT/HCPCS: 36482

== ENCOUNTER → 2024-12-21 09:18 | Outpatient (BNVA) | payer OTHER, SELFPAY | PROVIDERS: PCP Physician Assistant; Visit Provider Surgery Vascular Surgery | DX: I83.11 Varicose veins of right lower extremity with inflammation (principal); F32.A Depression, unspecified; F41.9 Anxiety disorder, unspecified; J45.909 Unspecified asthma, uncomplicated; L30.9 Dermatitis, unspecified | CPT/HCPCS: 36482; J2003 ==

== ENCOUNTER 2025-01-03 09:02 | Outpatient (AMB) | payer OTHER, SELFPAY ==
--- NOTE | 2025-01-03 09:09 | A.OFFVIS_ITS ---
Intake Visit Reasons: 2 wk follow up R GSV Venaseal 12/21/24 Intake Note: Patient presents for 2 week follow up right GSV venaseal. No complaints. Accompanied by: Self / Same As Patient Allergies cimetidine (From TAGAMET) Allergy (Unknown, Verified 01/03/25 09:10) NAUSEA & VOMITING HPI HPI 2 wk follow up R GSV Venaseal 12/21/24: Details: The patient is a 34-year-old female presenting for follow-up after right great saphenous vein venous procedure. She reports that her leg feels better, although it remains a little sore and tender, with sensations of tugging, which is expected post-procedure. The patient was advised that these symptoms are normal and should improve over the next few weeks with warm compresses and occasional use of Advil or Motrin if needed. The patient noted improvement in leg swelling and ease of movement, particularly when getting up in the morning. She continues to experience some soreness and tugging but reports a reduction in pain compared to before the procedure. The patient was advised to continue using compression therapy, especially on days with prolonged standing, and to elevate her legs when sitting at home. She was encouraged to maintain physical activity, such as walking, to promote circulation. She now presents for postprocedure follow-up. [facility] Medical History Depression Anxiety Eczema Asthma Surgical History S/P foot surgery, left Family History Mother Alcohol abuse Breast cancer Brother Alcohol abuse Father Asthma High blood pressure Diabetes Paternal Grandfather Asthma High blood pressure High cholesterol Diabetes Thyroid disorder Paternal Grandmother Asthma Psychiatric disorder Maternal Grandfather High cholesterol Psychiatric disorder Maternal Grandmother Breast cancer Social History Housing: House Patient Tobacco Use Status: Never used Tobacco e-Cigarette/Vaping Use: Never Used Second Hand Smoke Exposure: No service: No Current occupational status: employed 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 [employer] Current occupational exposures/hazards: No Cognitive needs: No Hearing needs: No Vision needs: Yes Review of Systems Const All systems reviewed & are unremarkable except as noted in HPI and below Reports no additional complaints ENT Reports Normal hearing present Card Denies chest pain, Denies chest pain at rest, Denies chest pain with activity and Denies pedal edema Resp Denies cough GI Denies abdominal pain Musc Denies abnormal gait, Denies muscle cramps and Denies radiating pain into limb Skin/Breast Denies skin ulcer and Denies wounds Neuro Reports Normal hearing present and Denies abnormal gait Psych Reports no additional complaints Physical Exam Const General: cooperative, healthy appearing and comfortable Orientation/consciousness: oriented to person, oriented to place and oriented to time HEENT Head: Yes normal to inspection Neck Neck: Yes normal visual inspection Carotids: no bruits Chest Chest palpation & inspection: normal inspection of the chest Resp Effort & Inspection: normal respiratory effort and able to speak in complete sentences Auscultation: clear to auscultation bilaterally, no crackles, no rales, no rhonchi and no wheezes Cardio Rate: regular rate Rhythm: regular rhythm Heart sounds: S1 normal heart sound present and S2 normal heart sound present Bruits: no carotid bruits Peripheral pulses: Peripheral pulses 2+ throughout GI Inspection: Yes normal to inspection Skin Wounds: no wounds Hair: normal Neuro General: oriented to person, oriented to place and oriented to time Cranial nerves: Yes CN's II-XII intact bilaterally and Yes Normal hearing present Cognition (Neuro): normal cognition Motor exam (neuro): 5/5 motor strength present throughout Extrem Other: venous exam: No significant superficial varicosities or spider telangiectasias, minimal edema General: No clubbing, No cyanosis and No edema Psych Appearance: grossly normal Mental Status: mental status grossly normal Speech and movement: Normal speech and movement present Assessment & Plan Assessment & Plan (1) Varicose veins of right lower extremity with inflammation: Comment: 12/21/2024 - right great saphenous vein Cyanoacralate ablation Code(s): I83.11 - Varicose veins of right lower extremity with inflammation Category: Medical Plan: The patient has done extremely well with all venous treatments. Patient's may often experience postprocedure phlebitic episodes and I have discussed with the patient use of warm compresses and NSAIDS if tolerated for pain discomfort. In addition, I have discussed continued conservative measures including use of compression, leg elevation, and exercise. The patient was also given an information sheet regarding appropriate use of compression stockings and future purchases. Thank you for allowing us to care for your patient with venous disease. Coding Level of Care Code Est Pt Level 3 (89005) Diagnoses Varicose veins of right lower extremity with inflammation I83.11
--- OUTSIDE RECORDS SUMMARY | 2025-01-03 09:23 | XMS_ITS | Encounter Summary ---
Author Organization [facility] Address [address] [place] [id number] Phone Care Team Providers Care Tack Maker Name Role Phone Unavailable Primary Care Provider Unavailabl e Encounter Details Date Type Department Care Team (Late st Contact Info) Description 03/25/2011 Documentation [facility] [address] [place] [address] Family Medicine, Physician [facility] [place] [address] Social History Tobacco Use Types [...]
--- OUTSIDE RECORDS SUMMARY | 2025-01-03 09:23 | XMS_ITS | Patient Health Record ---
Author Organization [facility] Address [address] [facility] [place] [address] Care Team Providers Care Optical Systems Engineer Name Role Phone Caryn Winston Primary Care Provider Naa Tellez Unavailable [phone] Allergies Allergen (clinical drug ingredient) Drug/Non Drug [...] Insured Coverage Start Date Coverage End Date [facility] ([facility]) [address] [place] [address] [id number], [place] Self - patient is the insured Medical (General) History Medical History History ICD Code Anxiety Back,Hip,and Knee pain Depression Chicken pox Surgical History Surgery Date(Month/Year) ovarian cyst 09/2016 wisdom teeth extraction 2006
== END 2025-01-03 09:29 | disposition home or self-care (01) ==
LOC: HO.HVS 09:03
PROVIDERS: PCP Physician Assistant; Visit Provider Surgery Vascular Surgery
DX: I83.11 Varicose veins of right lower extremity with inflammation (principal)
CPT/HCPCS: 99213

== ENCOUNTER 2025-02-27 14:04 | Outpatient (AMB) | payer OTHER, SELFPAY ==
--- NOTE | 2025-02-27 14:18 | A.OFFPC_ITS ---
Vital Signs 02/27/25 14:19 Height 5 ft 4 in Weight 170 lb BMI 29.2 BP 112/70 Blood Pressure Location Lt brachial Position Sitting Respiration 12 Pulse 71 Pulse Source Pulse Oximeter Pulse Oximetry (%) 98 Oxygen Delivery Method Room Air Intake Visit Reasons: Labs - Follow up Urine Sample Intake Note: Follow up went to Urgent care a month ago. [facility] ESCALONA in [place]. Plastics Fabricator Or Welder Required: No Allergies cimetidine (From [employer]) Allergy (Unknown, Verified 02/27/25 14:19) NAUSEA & VOMITING Medication List - Last Reconciled 02/27/25 by Marilyn Hawkins PA-C fluoxetine 40 mg PO DAILY Tobacco use date assessed: 06/13/24 Dental Screening Dental Screen Date: 06/13/24 HPI Labs - Follow up Urine Sample HPI Details Patient is a 34-year-old female who presents today for a follow up. She initially made this appointment for blood in her urine. Uro: States that in January she had 3 days of gross hematuria. It was painless. She went to urgent care who confirmed the blood in her urine and asked her to make sure she was not on her period. She states that she knows what her menses feels like and she did not have that but was having gross hematuria every time she urinated. She did not have a UTI. She was well hydrated. This lasted for 3 days. She did call her crack off person who recommends that she sees a urologist. Endo: States during her she was a borderline diabetic and last A1c was 5.2. Psych: Currently on fluoxetine 40 mg. She is feeling like this is ineffective. She is wondering about trying a different medication. No SI/HI. Did not tolerate sertraline. 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 Patient is BRCA negative. She does follow with gynecology. Works full-time Has a 1-year-old and 2-year-old at home. Not currently breast-feeding. They have discussed family planning and they are done having more children. [facility] Medical History Depression Anxiety Eczema Asthma Surgical History S/P foot surgery, left Family History Mother Alcohol abuse Breast cancer Brother Alcohol abuse Father Asthma High blood pressure Diabetes Paternal Grandfather Asthma High blood pressure High cholesterol Diabetes Thyroid disorder Paternal Grandmother Asthma Psychiatric disorder Maternal Grandfather High cholesterol Psychiatric disorder Maternal Grandmother Breast cancer Social History Housing: House Patient Tobacco Use Status: Never used Tobacco e-Cigarette/Vaping Use: Never Used Second Hand Smoke Exposure: No service: No Current occupational status: employed 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 [employer] Current occupational exposures/hazards: No Cognitive needs: No Hearing needs: No Vision needs: Yes Questionnaire Thrive Questionnaire Date Thrive assessed: 06/06/24 I am a: Patient What is your living situation today?: I have a steady place to live Within the past 12 months, did the food you bought not last and you didn't have the money to get more?: Never true Within the past 12 months, did you worry whether your food would run out before you got money to buy more?: Never true Do you have trouble paying for medicines?: No Do you have trouble getting transportation to medical appointments?: No Do you have trouble paying your heating and electricity bill?: No Do you have trouble taking care of your child, family member or friend?: No Do you have trouble with day-to-day activities such as bathing, preparing meals, shopping, managing finances, etc.?: No Are you currently unemployed and looking for a job?: No Are you interested in more education?: No Please select the resources that you would like help with: None Currently or been in a relationship where the following occur: No concerns reported THRIVE Score: 0 ELIZABETH-7 AMB Questionnaire ELIZABETH-7 Date ELIZABETH - 7 assessed: 06/13/24 Source: Developed by Drs. Wade Garrett, Teresa Watkins, Fady Giraldo and colleagues, with an educational sarina from [employer]. Physical exam (Primary Care) Vital Signs: Last Vital Signs Pulse 71 02/27/25 14:19 Resp 12 02/27/25 14:19 BP 112/70 02/27/25 14:19 Pulse Ox 98 02/27/25 14:19 Oxygen Delivery Method Room Air 02/27/25 14:19 BMI result Body Mass Index 29.2 Tobacco/Smoking Status: Tobacco use Status Tobacco use date assessed 06/13/24 02/27/25 14:22 Patient Tobacco Use Status Never used Tobacco 02/27/25 14:22 e-Cigarette/Vaping Use Never Used 02/27/25 14:22 Thrive Assessment: Date of Thrive Assessment Date Thrive assessed 06/06/24 02/27/25 14:22 Currently or been in a relationship where the following occur: No concerns reported Const Orientation/consciousness: patient oriented x3 HENMT Ears: hearing grossly normal bilaterally Neck Thyroid: Thyroid normal Lymphatic: no lymphadenopathy noted Resp Auscultation: clear to auscultation bilaterally Cardio Rate: regular rate Rhythm: regular rhythm Heart sounds: S1 normal heart sound present and S2 normal heart sound present GI Inspection: Yes normal to inspection Palpation (GI): Soft to palpation and Other GI palpation findings present (nontender, no cva tenderness) Auscultation: normoactive bowel sounds Rectal Exam - Female: deferred Skin General skin exam: no rashes or lesions noted Neuro General: patient oriented x3, gait normal and no focal motor deficits Coding Level of Care Code Est Pt Level 4 (64061) Complex EM visit Add On G2211 Diagnoses Gross hematuria R31.0 Anxiety with depression F41.8 Assessment & Plan Assessment & Plan (1) Gross hematuria: Code(s): R31.0 - Gross hematuria Category: Medical Plan: UA negative. Ultrasound ordered. Referral to Urology. (2) Anxiety with depression: Code(s): F41.8 - Other specified anxiety disorders Category: Medical Plan: We will switch from fluoxetine to Lexapro. Discussed risks and benefits and adverse effects of this medication. Short term follow up. Sooner if needed. Labs ordered today. Patient understands and agrees with this plan. Orders: Orders US renal BI Today R31.0 - Gross hematuria Vitamin B12 and Folate Today F41.8 - Other specified anxiety disorders, R31.0 - Gross hematuria Complete Blood Count Auto Diff Today F41.8 - Other specified anxiety disorders, R31.0 - Gross hematuria Comprehensive Met. Panel Today F41.8 - Other specified anxiety disorders, R31.0 - Gross hematuria TSH reflex Free T4 Today F41.8 - Other specified anxiety disorders, R31.0 - Gross hematuria Referrals Urology Referral R31.0 - Gross hematuria Medications: New escitalopram oxalate (Lexapro) 10 mg PO DAILY 90 tabs 0RF Discontinued fluoxetine Discontinued Reason: Doctor's Order 40 mg PO DAILY 90 caps 3RF
[2025-02-27 14:19] VITALS: BP 112/70; PULSE 71; RESP 12; O2SAT 98; BMI 29.2
--- OUTSIDE RECORDS SUMMARY | 2025-02-27 16:37 | XMS_ITS | Patient Health Record ---
Author Organization [facility] Address [address] [facility] [place] [address] Care Team Providers Care Steel Fitter Name Role Phone Caryn Winston Primary Care Provider Naa Tellez Unavailable [phone] Allergies Allergen (clinical drug ingredient) Drug/Non Drug [...] Insured Coverage Start Date Coverage End Date [facility] [address] [place] [address] [id number], [place] Self - patient is the insured Medical (General) History Medical History History ICD Code Anxiety Back,Hip,and Knee pain Depression Chicken pox Surgical History Surgery Date(Month/Year) ovarian cyst 09/2016 wisdom teeth extraction 2006
== END 2025-02-27 14:48 | disposition home or self-care (01) ==
LOC: HO.HMCFM 14:05
PROVIDERS: PCP Physician Assistant; Visit Provider Physician Assistant
DX: R31.0 Gross hematuria (principal); F41.8 Other specified anxiety disorders; Z13.9 Encounter for screening, unspecified

== ENCOUNTER 2025-02-27 14:04 | Outpatient (REF) | payer OTHER, SELFPAY ==
[2025-02-27 18:22] LABS: MANUAL DIFF FLAG NO
[2025-02-27 18:27] LABS: Hematocrit 39.0 % (37.0-47.0); Hemoglobin 13.2 g/dl (12.0-16.0); Imm Gran Abs Auto 0.02 X10*3/uL (0.00-0.03); Imm Gran Pct Auto 0.3 % (0.0-0.4); Lymphocytes Absolute Auto 2.0 X10*3/uL (1.2-4.9); Mean Corpuscular HGB Conc 33.8 g/dl (31.0-35.0); Mean Corpuscular Hemoglobin 28.5 pg (27.0-33.0); Mean Corpuscular Volume 84.2 fL (80.0-98.0); NRBC Abs Auto 0.000 X10*3/uL (0.0-0.012); NRBC Pct Auto 0.0 /100WBC (0.0-0.2); Platelet Count 294 X10*3/uL (160-400); Red Blood Count 4.63 X10*6/uL (4.20-5.50); White Blood Count 7.2 X10*3/uL (4.8-10.8)
[2025-02-27 19:02] LABS: Alanine Aminotransferase 20 U/L (0-31); Albumin Level 4.8 g/dL (3.5-5.0); Alkaline Phosphatase 65 U/L (39-117); Anion Gap 14 (12-20); Aspartate Amino Transferase 22 U/L (5-31); Blood Urea Nitrogen 13 mg/dL (9-16); Calcium 10.3 mg/dL (8.4-10.2); Carbon Dioxide 27 mmol/L (22-29); Chloride 102 mmol/L (96-108); Estimated Glomerular Filt Rate > 60; Potassium 4.1 mmol/L (3.3-5.1); Sodium 139 mmol/L (135-145); Total Protein 7.6 g/dL (6.5-8.0)
[2025-02-27 19:16] LABS: Folate 9.2 ng/mL (> or = 4.0); Vitamin B12 808 pg/mL (200-900)
== END 2025-02-27 14:05 | disposition home or self-care (01) ==
LOC: HO.WFDLDS 14:04
PROVIDERS: PCP Physician Assistant; Visit Provider Physician Assistant
DX: R31.0 Gross hematuria (principal); F41.8 Other specified anxiety disorders; R73.01 Impaired fasting glucose; E16.2 Hypoglycemia, unspecified; R42 Dizziness and giddiness; Z86.32 Personal history of gestational diabetes
CPT/HCPCS: 36415; 80053; 81002; 82043; 82570; 82607; 82746; 84443; 85025

== ENCOUNTER 2025-04-03 15:28 | Outpatient (AMB) | payer OTHER, SELFPAY ==
--- NOTE | 2025-04-03 14:51 | MHC.PC.OV ---
Intake Visit Reasons: 4 weeks ok to telehealth Intake Note: Medication follow up. Didnt start using Lexapro. 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 Allergies cimetidine (From [employer]) Allergy (Unknown, Verified 04/03/25 15:22) NAUSEA & VOMITING Medication List - Last Reconciled 04/03/25 by Marilyn Hawkins PA-C fluoxetine 40 mg PO DAILY Tobacco use date assessed: 04/03/25 Dental Screening Dental Screen Date: 04/03/25 Did you have a dental visit in the last 12 months?: Yes Did you have a dental problem in the last 6 months where you did not have access to dental care?: No Was dental information given to patient?: Patient has dentist HPI 4 weeks ok to telehealth HPI Details Patient is a 34-year-old female who presents today for a follow up. Psych: Currently on fluoxetine 40 mg. We are going to try to wean from the fluoxetine and start Lexapro however, she states changing the fluoxetine made her feel nervous. She does feel like it is not that effective and she does struggle with energy and motivation. She is wondering about trying a different medication. No SI/HI. Did not tolerate sertraline. 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 Patient is BRCA negative. She does follow with gynecology. Works full-time Has a 1-year-old and 2-year-old at home. Not currently breast-feeding. They have discussed family planning and they are done having more children. [facility] Medical History Depression Anxiety Eczema Asthma Surgical History S/P foot surgery, left Family History Mother Alcohol abuse Breast cancer Brother Alcohol abuse Father Asthma High blood pressure Diabetes Paternal Grandfather Asthma High blood pressure High cholesterol Diabetes Thyroid disorder Paternal Grandmother Asthma Psychiatric disorder Maternal Grandfather High cholesterol Psychiatric disorder Maternal Grandmother Breast cancer Social History (Updated 04/03/25 @ 15:26 by Sharlene Aguila CMA) Housing: House Alcohol intake: current Patient Tobacco Use Status: Never used Tobacco e-Cigarette/Vaping Use: Never Used Second Hand Smoke Exposure: No service: No Current occupational status: employed 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 1. Little interest or pleasure in doing things: not at all 2. Feeling down, depressed, or hopeless: not at all 3. Trouble falling or staying asleep, or sleeping too much: more than half the days 4. Feeling tired or having little energy: more than half the days 5. Poor appetite or overeating: not at all 6. Feeling bad about yourself - or that you are a failure or have let yourself or your family down: not at all 7. Trouble concentrating on things, such as reading the newspaper or watching television: nearly every day 8. Moving or speaking so slowly that other people could have noticed. Or the opposite - being so fidgety or restless that you have been moving around a lot more than usual: not at all 9. Thoughts that you would be better off or of hurting yourself in some way: not at all Total score: 7 Depression Screening Interpretation: Positive Depression Screening Done: Yes 89125 - PHQ-9 Billing: Yes Source: Developed by Drs. Wade Garrett, Teresa Watkins, Fady Giraldo and colleagues, with an educational sarina from [employer]. Thrive Questionnaire Date Thrive assessed: 06/06/24 AUDIT C Alcohol Use Questionnaire (AUDIT-C) 1. How often do you have a drink containing alcohol?: Monthly or less 2. How many drinks containing alcohol do you have on a typical day when you are drinking?: 1 or 2 3. How often do you have six or more drinks on one occasion?: Never Total Score: 1 ELIZABETH-7 AMB Questionnaire ELIZABETH-7 Date ELIZABETH - 7 assessed: 04/03/25 Feeling nervous, anxious, or on edge: 2 = More than half the days Not being able to stop or control worryin = More than half the days Worrying too much about different things: 2 = More than half the days Trouble relaxin = Not at all Being so restless that it is hard to sit still: 0 = Not at all Becoming easily annoyed or irritable: 0 = Not at all Feeling afraid as if something awful might happen: 2 = More than half the days Total ELIZABETH-7 score (0-4 normal; 5-9 mild; 10-14 moderate; 15-21 severe): 8 Source: Developed by Drs. Wade Garrett, Teresa Watkins, Fady Giraldo and colleagues, with an educational sarina from [employer]. ELIZABETH-7 Assessment Billing ELIZABETH-7 Assessment Tool: ELIZABETH-7 Assessment 56399 Physical exam (Primary Care) Tobacco/Smoking Status: Tobacco use Status Tobacco use date assessed 04/03/25 04/03/25 15:26 Patient Tobacco Use Status Never used Tobacco 04/03/25 15:26 e-Cigarette/Vaping Use Never Used 04/03/25 15:26 PHQ-9: PHQ-9 Score PHQ-9: Total score 7 04/03/25 16:05 Depression Screening Interpretation: Positive Thrive Assessment: Date of Thrive Assessment Date Thrive assessed 06/06/24 04/03/25 14:52 Telehealth Telehealth Telehealth Platform: Telephone Location of provider rendering services: practice address Location of patient: address on file Patient Identification confirmed using: Name, : Yes Telehealth method: voice only Patient verbally consented to treatment: Yes Patient verbally consented to billing insurance company: Yes Patient informed of any privacy concerns related to visit: Yes Minutes spent on Phone/Video with Pt.: 15 Coding Level of Care Code Tele Est Pt Level 2 (92751) Diagnoses Anxiety with depression F41.8 Additional Codes ELIZABETH-7 Assessment Billing - ELIZABETH-7 Assessment Tool: ELIZABETH-7 Assessment 44557 ([id number]) PHQ-9 - 18041 - PHQ-9 Billing: Yes ([id number]) Assessment & Plan Assessment & Plan (1) Anxiety with depression: Code(s): F41.8 - Other specified anxiety disorders Category: Medical Plan: Continue fluoxetine and will try wellbutrin 150 mg. Discussed risks and benefits and adverse effects of this medication. Short term follow up. Sooner if needed. Labs ordered today. Patient understands and agrees with this plan. Medications: New bupropion HCl XL (Wellbutrin XL) 150 mg PO QAM 90 tabs 0RF
--- OUTSIDE RECORDS SUMMARY | 2025-04-03 19:49 | XMS_ITS | Patient Health Record ---
Author Organization [facility] Mike Hernandez Address [address] [place] [address] Care Team Providers Care Needle Grinder Name Role Phone Caryn Winston Primary Care Provider Naa Tellez Unavailable [phone] Allergies Allergen (clinical drug ingredient) Drug/Non Drug [...] Insured Coverage Start Date Coverage End Date [facility] ([facility]) [address] [place] [address] [id number], [place] Self - patient is the insured Medical (General) History Medical History History ICD Code Anxiety Back,Hip,and Knee pain Depression Chicken pox Surgical History Surgery Date(Month/Year) ovarian cyst 09/2016 wisdom teeth extraction 2006
== END 2025-04-03 17:05 | disposition home or self-care (01) ==
LOC: HO.HMCFM 15:28
PROVIDERS: PCP Physician Assistant; Visit Provider Physician Assistant
DX: F41.8 Other specified anxiety disorders (principal)

== ENCOUNTER → 2025-04-03 15:28 | Outpatient (BNVA) | payer OTHER, SELFPAY | PROVIDERS: PCP Physician Assistant; Visit Provider Physician Assistant | DX: F41.8 Other specified anxiety disorders (principal); Z79.899 Other long term (current) drug therapy | CPT/HCPCS: 96127 ==

== ENCOUNTER 2025-04-10 08:37 | Outpatient (REF) | payer OTHER, SELFPAY ==
--- NOTE | ~2025-04-10 | US_ITS ---
CLINICAL HISTORY: R31.0 - Gross hematuria US renal with Color Doppler Comparison: None Findings: Right kidney normal size and echotexture, 11.3 cm length. No hydronephrosis calculus or mass. Normal color flow. Left kidney normal size and echotexture, 11.4 cm length. No hydronephrosis calculus or mass. Normal color flow. Mild pelvicaliectasis Impression: 1. No nephrolithiasis. No hydronephrosis. Mild pelvicaliectasis on the left. This document has been electronically signed by: Brennan Benito MD on 04/11/2025 13:18:56
--- OUTSIDE RECORDS SUMMARY | 2025-04-10 08:59 | XMS_ITS | Patient Health Record ---
Author Organization [facility] Mike Hernandez Address [address] [place] [address] Care Team Providers Care Airplane Cabin Attendant Name Role Phone Caryn Winston Primary Care Provider Naa Tellez Unavailable [phone] Allergies Allergen (clinical drug ingredient) Drug/Non Drug [...] Date Coverage End Date [facility] ([facility] [address] [place] [address] [id number], [place] Self - patient is the insured Medical (General) History Medical History History ICD Code Anxiety Back,Hip,and Knee pain Depression Chicken pox Surgical History Surgery Date(Month/Year) ovarian cyst 09/2016 wisdom teeth extraction 2006
== END 2025-04-10 08:38 | disposition home or self-care (01) ==
LOC: HO.HMGCX 08:37
PROVIDERS: PCP Physician Assistant; Visit Provider Physician Assistant
DX: R31.0 Gross hematuria (principal)
CPT/HCPCS: 76775

== ENCOUNTER → 2025-04-10 08:39 | Outpatient (BNV) | payer OTHER, SELFPAY | PROVIDERS: PCP Physician Assistant; Visit Provider Radiology Diagnostic Radiology | DX: R31.0 Gross hematuria (principal); R93.41 Abnormal radiologic findings on diagnostic imaging of renal pelvis, ureter, or bladder | CPT/HCPCS: 76775 ==